=== PATIENT | male | born 1965 | race Two or more races ===

== ENCOUNTER → 2016-05-11 | Outpatient (CLI) | payer BC, MEDICAID ==
--- NOTE | 2016-06-02 00:33 | ECWPNPC ---
PATIENT NAME: SADE BUENROSTRO : 1965 GENDER: MALE MRN: VISIT DATE: 05/11/2016 DISCHARGE DATE: 05/11/16 1414 VISIT LOCKED DATE TIME: PHYSICIAN: CHARANJIT VOGEL RESOURCE: CHARANJIT VOGEL REASON FOR APPOINTMENT 1. CHRONIC PAIN HISTORY OF PRESENT ILLNESS FALL RISK SCREENING: SCREENING :NO FALLS IN THE PAST YEAR PAIN SCREENING: PATIENT HAS A COMPLAINT OF ACUTE OR CHRONIC PAIN YES TODAY'S VISIT: NOTES: REFERRRED BY DR GISELLA NASCIMENTO AT [facility]. IN 2011 ONSET OF HEADACHES LEFT SIDE, WAS THOUGHT TO BE TMJ - WAS SEEN BY DENTIST PAIN STARTED AT BASE OF SKULL RADIATES OVER HEAD TO TOP OF EYE, INTO LEFT MANDAEN , AND AT IT'S WORST WAS ALONG THE JAW EXCRUTIATING PAIN OCCURS IF LOOKING UP AND TO THE RIGHT.. WAS SEEN BY DR GARCIA, WENT FOR SURGERY AND HAD A DURAL LEAK WHICH CAUSED AN INFECTION. SPENT 26 DAYS IN ICU AT [facility] IN 2012. THIS PRODUCED NO IMPROVEMENT INWITH THE FACIAL PAIN OR THE OCCIPITAL PAIN. LEF TEYE CAN BE BLURRY WITH INCREASED PAIN . CAN HAVE A SURROUNDING WHITE AROUND LEFT EYE VISION. THIS OCCURRED PRIOR TO SURGERY. NO VISUAL FIELD STUDY DONE. HEARING - LEFT TINNITUS. HAS NOT HAD AUDILOGY TESTING. HAS SOME OCCASION PAIN RADIATING TO HANDS, SOME N/T INTO BOTH HANDS - NO EMG. NO SPECIFIC TRAUMA PRECEDED SX. ONSET WAS MORE GRADUAL. NO BOTOX. PAIN AGGRAVATED BY BENDING DOWN AND PICKING UP A WEIGHT. NO SPECIFIC AGGRAVATION OF PAIN WITH CHEWING.. CURRENT MEDICATIONS TAKING HYDROCODONE-ACETAMINOPHEN 10-325 MG TABLET 2 TABS ORALLY EVERY 6 HRS PRN TAKING OMEPRAZOLE 40 MG CAPSULE DELAYED RELEASE 1 CAPSULE ORALLY ONCE A DAY TAKING TRAMADOL HCL ER 100 MG TABLET EXTENDED RELEASE 24 HOUR 1 TABLET ORALLY ONCE A DAY NOT-TAKING HYSINGLA ER 80 MG TABLET ER 24 HOUR ABUSE-DETERRENT 1 TABLET ORALLY ONCE A DAY NOT-TAKING NUVIGIL 50 MG TABLET 1 TABLETS ORALLY BID MEDICATION LIST REVIEWED AND RECONCILED WITH THE PATIENT PAST MEDICAL HISTORY TRIGEMINAL NEURALGIA GERD BLEEDING ULCERS BACK AND NECK PAIN ALLERGIES OXYCONTIN: URINARY RETENTION: SIDE EFFECTS NSAIDS: GI BLEED/ULCERS: CONTRAINDICATION SURGICAL HISTORY ARTHROSCOPY LEFT SHOULER ROTATOR CUFF REPAIR 03/2015 RIGHT KNEE--UNI COMPARTMENTAL PARTIAL REPLACEMENT 03/2014 MICROVASCULAR DECOMPRESSION 01/2013 MICROVASCULAR DECOMPRESSION 12/2012 4 OTHER RIGHT KNEE SURGERIES 5 RIGHT HAND SURGERIES 4 RIGHT SHOULDER SURGERIES 2 OTHER LEFT SHOULDER SURGERIES CHOLECYSTECTOMY SURGERY ON RIGHT INDEX FINGER FAMILY HISTORY FATHER: 67 YRS, DIAGNOSED WITH CANCER MOTHER: ALIVE, DIAGNOSED WITH STROKE 2DAUGHTER(S) . DAD--LUNG CA. SOCIAL HISTORY GENERAL: TOBACCO USE ARE YOU A:NONSMOKER ALCOHOL SCREENING POINTS2 INTERPRETATIONNEGATIVE RECREATIONAL DRUG USE DRUG USE?NO CAFFEINE CAFFEINE USE?YES HOW OFTEN AND HOW MUCH? 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 DIET: REGULAR. EXERCISE: WALKS. MARITAL STATUS: .. OTHERS AT HOME: NONE. BUDDHISM: NO YAZIDISM BELIEFS THAT WOULD IMPACT HEALTH CARE. LANGUAGE: SLOVAK. EDUCATION: 3 COLLEGE DEGREES PLAN OF CARE FOR PAIN CLINIC DISCUSSED WITH PATIENT AND HE VERBALIZED UNDERSTANDING.. LEARNING BARRIERS / SPECIAL NEEDS VISION IMPAIRED?YES :CORRECTIVE LENSES FOR COMPUTER WORK LEARNING PREFERENCES?NO PAIN CLINIC PFS, CLERGY, PUBLIC HEALTH REFERRALS PFS REFERRAL NEEDED?NO CLERGY REFERRAL NEEDED?NO PUBLIC HEALTH REFERRAL NEEDED?NO ADVANCED DIRECTIVES HEALTH CARE PROXY?NO HAS LIVING WILL--DAUGHTER WENCESLAO SALOMON [phone] INSTRUCTED TO BRING IN LIVING WILL NEXT VISIT SO IT CAN BE SCANNED INTO OUR SYSTEM. HOSPITALIZATION/MAJOR DIAGNOSTIC PROCEDURE ABOVE SURGERIES WTIH THE 01/2013 WAS IN FOR 26 DAYS DUE TO COMPLICATIONS FROM SURGERY REVIEW OF SYSTEMS CONSTITUTIONAL: ANY CHANGE IN YOUR MEDICAL CONDITION? NO . CHILLS NO . FEVER NO . INFECTION: DO YOU HAVE NEW INFECTIONS? NO - SINUS CONGESTION . DO YOU HAVE HISTORY OF MRSA? NO . MUSCULOSKELETAL: ANY NEW PATTERNS OF PAIN OR NUMBNESS? NO . SYTEMIC LUPUS NO . GASTROENTEROLOGY: ANY NEW CHANGE IN BOWEL CONTROL? NO . BARRETTS ESOPHAGUS NO . CIRRHOSIS NO . HEPATITIS NO . LIVER FAILURE NO . ACID REFLUX YES ALONG WITH ULCER. LAST EGD 2015 . UNEXPLAINED WEIGHT LOSS NO . GENITOURINARY: ANY NEW CHANGE IN BLADDER CONTROL? NO . IS THERE A CHANCE YOU COULD BE ? NO . HEMATOLOGY/LYMPH: DO YOU TAKE ANY BLOOD THINNERS? (FOR EXAMPLE- COUMADIN, PLAVIX, AGGRENOX, PLATEL, PRADAXA, OR XARELTO) NO . WHEN WAS YOUR LAST DOSE? DATE: TIME: . LOW PLATELET COUNT NO . SICKLE CELL DISEASE NO . VON WILLIEBRANDS NO . FACTOR V LEIDEN NO . THALLASEMIA NO . ANEMIA NO . EASY BRUISING NO . NEUROLOGY: HAVE YOU FALLEN IN THE PAST 6 MONTHS? NO . ANY NEW EXTREMITY NUMBNESS OR WEAKNESS? NO . HEAD INJURY NO . DEMENTIA NO . CEREBRAL PALSY NO . MULTIPLE SCLEROSIS NO . DIZZINESS NO . HEADACHE CONSTANT HEADACHE DUE TO TRIGEMINAL NEURALGIA . STROKES NO . VERTIGO NO . CARDIOLOGY: DO YOU HAVE A PACEMAKER OR DEFIBRILLATOR? NO . ANGINA NO . HEART ATTACK NO . HEART SURGERY NO . CONGESTIVE HEART FAILURE/FLUID OVERLOAD NO . CHEST PAIN NO . HIGH BLOOD PRESSURE NO . IRREGULAR HEART BEAT NO . RESPIRATORY: HAVE YOU BEEN SICK IN THE PAST WEEK? NO . FEVER NO . FLU LIKE SYMPTOMS? NO . CPAP NO . BYPAP NO . ASTHMA YES . EMPHYSEMA NO . CHRONIC LUNG DISEASES NO . SHORTNESS OF BREATH ON EXERTION NO . COUGH NO . SNORING NO . INTEGUMENTARY: DO YOU HAVE ANY RASHES OR OPEN SORES? NO . ALLERGIC/IMMUNO: ARE YOU ALLERGIC TO SHELLFISH OR IV DYE? NO . ANY NEW ALLERGIES? NO . PSYCHIATRIC: DO YOU HAVE THOUGHTS OF HURTING YOURSELF OR SOMEONE ELSE? NO . ARE YOU ABUSED, NEGLECTED, OR IN AN UNSAFE ENVIRONMENT? NO . ENDOCRINOLOGY: ARE YOU DIABETIC? NO . THYROID DISORDER NO . OTHER: DO YOU NEED ANY PRESCRIPTIONS? YES, HYDROCODNE/ACETOMIN., TRAMADOL . IF YES, PLEASE LIST: ____ . ANY NEW PROBLEMS WITH YOUR MEDICATIONS? NO . WHEN DID YOU LAST EAT? ____ . WHEN DID YOU LAST DRINK? ____ . WHAT DID YOU LAST DRINK? ____ . NAME OF PERSON DRIVING YOU HOME? ____ . DO YOU HAVE ANY OTHER QUESTIONS OR CONCERNS NO . PSYCHOLOGY: SLEEP DISTURBANCES MEDS OUT CAUSING . REVIEWED BY: PROVIDER: CHARANJIT GEE . VITAL SIGNS WT 200 LBS, HT 69 IN, BMI 29.53 INDEX, BP 135/96 MM HG, HR 100 /MIN, RR 16 /MIN, TEMP 98.1 F, OXYGEN SAT % 97, REVIEWED BY: AD. EXAMINATION GENERAL EXAMINATION: PSYCHALERT , ORIENTED X 3 , APPROPRIATE MOOD AND AFFECT , GOOD EYE CONTACT, PLEASANT TO INTERACT WITH. HEENT:NORMOCEPHALIC, NO LYMPHADENOPATHY, NO THYROMEGLY. EXQUISITE TENDERNESS OVER LEFT TMJ. DIFFICULTY WITH FULLY OPENING JAW. LUNGS:CLEAR TO AUSCULTATION BILATERALLY, NO WHEEZES, RALES OR RHONCHI. HEART:NORMAL S1S2, NO MURMURS, CLICK OR RUBS. MUSCULOSKELETAL:MUSCLE STRENGTH TESTING 5/5 BILATERAL UPPER AND LOWER EXTREMITIES. SLIGHT DECREASE IN NECK ROM WITH FLEXION, EXTENSION AND ROTOATION. FEW TRIGGER POINTS AND TIGHT FIBROUS BANDS IDENTIFIED OVER CERVICAL PARASPINOUS MUSCLES AND ACROSS THE TRAPEZIUS. . PERIPHERAL PULSES:NORMAL (2+) BILATERALLY UPPER EXTREMITIES. NEUROLOGIC EXAM:INTERMITTANTLY DISCONGUGATE EYE MOVEMENT. DTR'S TRACE BILATERAL UPPER EXTREMITIES AND RIGHT LOWER EXTREMITIY , 2 + LEFT LOWER EXTREMITY. EOM'S INTACT WITHOUT NYSTAGMUS. , CN'S II-XII GROSSLY INTACT. HYPERSENSATIVITY TO LIGHT TOUCH OVER L>R OCCIPITAL NERVES. PATCHY PARESTHESIAS NOTED OVER LEFT TMJ AND TEMPORAL REGIONS. SPEACH NONDYSARTHRIC. RRAMS NON DYSMETRIC.. 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 MIGRAINE WITH AURA AND WITH STATUS MIGRAINOSUS, NOT INTRACTABLE - G43.101 TREATMENT OCCIPITAL NEURALGIA OF LEFT SIDE STOP TRAMADOL HCL ER TABLET EXTENDED RELEASE 24 HOUR, 100 MG, 1 TABLET, ORALLY, ONCE A DAY START HYDROCODONE-ACETAMINOPHEN TABLET, 10-325 MG, 1-2 TABS, ORALLY, EVERY 4-6 HRS PRN PAIN MDD=8, 30 DAYS, 240, REFILLS 0 STOP HYSINGLA ER TABLET ER 24 HOUR ABUSE-DETERRENT, 80 MG, 1 TABLET, ORALLY, ONCE A DAY START HYSINGLA ER TABLET ER 24 HOUR ABUSE-DETERRENT, 30 MG, 1 TABLET, ORALLY, ONCE A DAY MDD=1, 30 DAY(S), 30, REFILLS 0 CHEMODENERVATION (BOTOX) MISC-MIGRAINE HEADACHES NOTES: NARCOTIC AGREEMENT . , ISTOP REGISTRY REVIEWED AND DEMNOSTRATES COMPLLIANCE. BRINGS IN MEDICATIONS WHICH IS APPROPRIATE FOR WHAT WAS DISPENSED. RECENT URINE TOXICOLOGY REVIEWED. NO UNAUTHORIZED MEDICATIONS. NO ILLICIT SUBSTANCES AND PRESCRIBED MEDICATIONS WERE PRESENT. , RISKS AND BENEFITS OF NARCOTIC/OPIOD MEDICATIONS WERE REVIEWED WITH PATIENT - THIS INCLUDES BUT IS NOT LIMITED TO RISK OF DEPENDANCE/DEVELOPMENT OF ADDICTION, MOOD DISTURBANCE AND DEPRESSION, OSTEOPOROSIS, HORMONAL AND LABIDAL CHANGES, RESPIRATORY DEPRESSION AND . PATIENT IS ADVISED NOT TO DRIVE WHILE ON THESE MEDICATIONS. PREVENTIVE MEDICINE PAIN CLINIC TEACHING: PROCEDURE TEACHING BOOKLET ON BOTOX INJECTION GIVEN TO PATIENT. PROCEDURE EXPLAINED TO PATIENT AND HE VERBALIZED UNDERSTANDING.. PROCEDURE CODES FA211 ESTABILISHED PATIENT [facility] CHARGE DISPOSITION & COMMUNICATION FOLLOW UP 2 WEEKS (REASON: NEED HEAVEN - MRI REPORTS FROM [facility]) ELECTRONICALLY SIGNED BY PERNELL DANIELS ON 06/01/2016 AT 05:15 PM EST DISCLAIMER : THIS IS A VISIT SUMMARY EXTRACTED FROM THE [employer] CHART. IT IS NOT A COPY OF THE [employer] PROGRESS NOTE. JD
== END ==
LOC: M PAIN 11:20
PROVIDERS: ATTEND Nurse Practitioner Family
DX: M54.81 Occipital neuralgia (principal); G50.0 Trigeminal neuralgia; G43.101 Migraine with aura, not intractable, with status migrainosus; G89.29 Other chronic pain; M54.2 Cervicalgia; Z79.891 Long term (current) use of opiate analgesic; Z79.899 Other long term (current) drug therapy; Z88.6 Allergy status to analgesic agent; Z88.8 Allergy status to other drugs, medicaments and biological substances

== ENCOUNTER → 2016-06-10 | Outpatient (CLI) | payer MEDICAID ==
--- NOTE | 2016-06-10 23:40 | ECWPNPC ---
PATIENT NAME: SADE BUENROSTRO : 1965 GENDER: MALE VISIT DATE: 06/10/2016 DISCHARGE DATE: 06/10/16 1546 VISIT LOCKED DATE TIME: PHYSICIAN: CHARANJIT VOGEL RESOURCE: CHARANJIT VOGEL REASON FOR APPOINTMENT 1. MEDS HISTORY OF PRESENT ILLNESS HISTORY OF PRESENT ILLNESS: PAIN THE PATIENT DESCRIBES THE PAIN... FALL RISK SCREENING: SCREENING :NO FALLS IN THE PAST YEAR TODAY'S VISIT: NOTES: RATES PAIN TODAY 8-9/10. OVER WEEKEND FELL ON ICE AND DAMAGED LEFT KNEE. HAD MASSIVE MIGRAINE WHICH TOOK HIM BACK TO ER. IS SCHEDULED FOR INJECTIONS HERE. ONTINUES TO HAVE USUAL LEFT OCCIPITAL PAIN WITH RADIATION OVER THE VERTEX. HAS HAD SOME TINGLING OVER LEFT TMJAND TO CHEEK AND ADVENTISM. IS ANXIOUS TO MOVE FORWARD WITH BOTOX FOR PROPHYLAXIS OCHRONIC MIGRAINE.. CURRENT MEDICATIONS TAKING OMEPRAZOLE 40 MG CAPSULE DELAYED RELEASE 1 CAPSULE ORALLY ONCE A DAY TAKING HYDROCODONE-ACETAMINOPHEN 10-325 MG TABLET 1-2 TABS ORALLY EVERY 4-6 HRS PRN PAIN MDD=8 TAKING HYSINGLA ER 30 MG TABLET ER 24 HOUR ABUSE-DETERRENT 1 TABLET ORALLY ONCE A DAY MDD=1 NOT-TAKING NUVIGIL 50 MG TABLET 1 TABLETS ORALLY BID MEDICATION LIST REVIEWED AND RECONCILED WITH THE PATIENT PAST MEDICAL HISTORY TRIGEMINAL NEURALGIA GERD BLEEDING ULCERS BACK AND NECK PAIN ALLERGIES OXYCONTIN: URINARY RETENTION: SIDE EFFECTS NSAIDS: GI BLEED/ULCERS: CONTRAINDICATION SOCIAL HISTORY GENERAL: TOBACCO USE ARE YOU A:NONSMOKER LEARNING BARRIERS / SPECIAL NEEDS ORIENTED TO PLAN OF CARE: PATIENT, PAIN MANAGEMENT PATIENT, ORIENTED TO PLAN OF CARE: PATIENT, PAIN MANAGEMENT PATIENT. NEW PATIENT PAIN DIARY TODAY'S VISITNOTES FROM 0-10, WHAT LEVEL IS YOUR PAIN TODAY?0 PAIN CLINIC PFS, CLERGY, PUBLIC HEALTH REFERRALS PFS REFERRAL NEEDED?NO CLERGY REFERRAL NEEDED?NO PUBLIC HEALTH REFERRAL NEEDED?NO WAS THE PROVIDER NOTIFIED OF ANY PERTINENT INFO?NO PFS REFERRAL NEEDED?NO CLERGY REFERRAL NEEDED?NO PUBLIC HEALTH REFERRAL NEEDED?NO WAS THE PROVIDER NOTIFIED OF ANY PERTINENT INFO?NO REVIEW OF SYSTEMS CONSTITUTIONAL: ANY CHANGE IN YOUR MEDICAL CONDITION? YES . CHILLS NO . FEVER NO . INFECTION: DO YOU HAVE NEW INFECTIONS? NO . DO YOU HAVE HISTORY OF MRSA? NO . MUSCULOSKELETAL: ANY NEW PATTERNS OF PAIN OR NUMBNESS? YES . GASTROENTEROLOGY: ANY NEW CHANGE IN BOWEL CONTROL? NO . GENITOURINARY: ANY NEW CHANGE IN BLADDER CONTROL? NO . IS THERE A CHANCE YOU COULD BE ? NO . HEMATOLOGY/LYMPH: DO YOU TAKE ANY BLOOD THINNERS? (FOR EXAMPLE- COUMADIN, PLAVIX, AGGRENOX, PLATEL, PRADAXA, OR XARELTO) NO . WHEN WAS YOUR LAST DOSE? DATE: TIME: . NEUROLOGY: HAVE YOU FALLEN IN THE PAST 6 MONTHS? YES LAST WEEK FELL AT HOME TWISTED KNEE ..TORN MENISCUS LEFT . ALSO HAD MIGRAINE .THAT TOOK HIM TO THE ED PAPER WORK BROUGHT IN . ANY NEW EXTREMITY NUMBNESS OR WEAKNESS? NO . CARDIOLOGY: DO YOU HAVE A PACEMAKER OR DEFIBRILLATOR? NO . RESPIRATORY: HAVE YOU BEEN SICK IN THE PAST WEEK? NO . FEVER NO . FLU LIKE SYMPTOMS? NO . COUGH NO . INTEGUMENTARY: DO YOU HAVE ANY RASHES OR OPEN SORES? NO . ALLERGIC/IMMUNO: ARE YOU ALLERGIC TO SHELLFISH OR IV DYE? NO . ANY NEW ALLERGIES? NO . PSYCHIATRIC: DO YOU HAVE THOUGHTS OF HURTING YOURSELF OR SOMEONE ELSE? NO . ARE YOU ABUSED, NEGLECTED, OR IN AN UNSAFE ENVIRONMENT? NO . ENDOCRINOLOGY: ARE YOU DIABETIC? NO . OTHER: DO YOU NEED ANY PRESCRIPTIONS? NO . IF YES, PLEASE LIST: ____ . ANY NEW PROBLEMS WITH YOUR MEDICATIONS? NO . WHEN DID YOU LAST EAT? ____ . WHEN DID YOU LAST DRINK? ____ . WHAT DID YOU LAST DRINK? ____ . NAME OF PERSON DRIVING YOU HOME? ____ . DO YOU HAVE ANY OTHER QUESTIONS OR CONCERNS NO . REVIEWED BY: PROVIDER: CHARANJIT GEE . VITAL SIGNS WT 202.4 LBS, HT 69 IN, BMI 29.89 INDEX, BP 175/99 R ARM, REPEAT BP 165/101 L ARM, HR 82 /MIN, RR 18 /MIN, TEMP 96.0 F, OXYGEN SAT % 99, NA INITIALS TL 1439, REVIEWED BY: KG. EXAMINATION GENERAL EXAMINATION: PSYCHALERT , ORIENTED X 3 , APPROPRIATE MOOD AND AFFECT . HEENT:INTERMITTANT FLUSHING OF HEAD AND NECK. . LUNGS:CLEAR TO AUSCULTATION BILATERALLY, NO WHEEZES, RALES OR RHONCHI. HEART:HEART RATE REGULAR. MUSCULOSKELETAL:MUSCLE STRENGTH TESTING 5/5 BILATERAL UPPER AND LOWER EXTREMITIES. POINT TENDERNESS OVER LEFT OCCIPITAL NOTCH AND OCCIPUT. , TRIGGER POINTS AND TIGHT FIBROUS BANDS OVER CERVICA PARASPINOUS MUSCLES AND ACROSS TRAPEZIUS MUSCLES BILATERALLY. MARKED DECREASE IN ROM WITH NECK FLEXION, EXTENSION, ROTATION. POINT TENDERNESS OVER LEFT TMJ AND OVER V1 AND V2 DISTRIBUTIONS LEFT TRIGEMINAL NERVE. 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 CONTINUE CURRENT MEDS. UTOX TODAY.RESTART ARMODAFINIL. CLINICAL NOTES: ISTOP REGISTRY REVIEWED AND DEMNOSTRATES COMPLLIANCE. BRINGS IN MEDICATIONS WHICH IS APPROPRIATE FOR WHAT WAS DISPENSED. RECENT URINE TOXICOLOGY REVIEWED. NO UNAUTHORIZED MEDICATIONS. NO ILLICIT SUBSTANCES AND PRESCRIBED MEDICATIONS WERE PRESENT. PROCEDURE CODES FA211 ESTABILISHED PATIENT [facility] CHARGE DISPOSITION & COMMUNICATION FOLLOW UP 26-28 DAYS ELECTRONICALLY SIGNED BY PERNELL DANIELS ON 06/10/2016 AT 05:32 PM EST DISCLAIMER : THIS IS A VISIT SUMMARY EXTRACTED FROM THE [employer] CHART. IT IS NOT A COPY OF THE [employer] PROGRESS NOTE. JD
== END ==
LOC: M PAIN 14:40
PROVIDERS: ATTEND Nurse Practitioner Family
DX: Z09 Encounter for follow-up examination after completed treatment for conditions other than malignant neoplasm (principal); G89.29 Other chronic pain; M54.81 Occipital neuralgia; G50.0 Trigeminal neuralgia; G43.101 Migraine with aura, not intractable, with status migrainosus; K21.9 Gastro-esophageal reflux disease without esophagitis; Z88.5 Allergy status to narcotic agent; Z88.6 Allergy status to analgesic agent; Z79.891 Long term (current) use of opiate analgesic; Z79.899 Other long term (current) drug therapy

== ENCOUNTER → 2016-07-19 | Outpatient (CLI) | payer MEDICAID, OTHER ==
[~2016-07-19] MED LIST: BOTULINUM INJ 100 UNITS (J0585) IM ONE; diazePAM 5 MG TAB As Ordered ONE; oxyCODONE 5MG TAB As Ordered ONE
--- NOTE | 2016-07-28 00:07 | ECWPNPC ---
PATIENT NAME: SADE BUENROSTRO : 1965 GENDER: MALE VISIT DATE: 07/19/2016 DISCHARGE DATE: 07/19/16 1224 VISIT LOCKED DATE TIME: PHYSICIAN: ERICH JOEL RESOURCE: ERICH JOEL REASON FOR APPOINTMENT 1. BOTOX INJECTION HISTORY OF PRESENT ILLNESS HISTORY OF PRESENT ILLNESS: PAIN THE PATIENT DESCRIBES THE PAIN... FALL RISK SCREENING: SCREENING :NO FALLS IN THE PAST YEAR CURRENT MEDICATIONS TAKING OMEPRAZOLE 40 MG CAPSULE DELAYED RELEASE 1 CAPSULE ORALLY ONCE A DAY, NOTES: 07/19/16 05 TAKING HYSINGLA ER 30 MG TABLET ER 24 HOUR ABUSE-DETERRENT 1 TABLET ORALLY ONCE A DAY MDD=1, NOTES: 07/19/16 05 TAKING ARMODAFINIL 150 MG TABLET 1 TABLET IN THE MORNING ORALLY ONCE A DAY MDD=1, NOTES: 07/17/16 2300 TAKING HYDROCODONE-ACETAMINOPHEN 10-325 MG TABLET 1-2 TABS ORALLY EVERY 4-6 HRS PRN PAIN MDD=8, NOTES: 07/19/16 0530 NOT-TAKING NUVIGIL 50 MG TABLET 1 TABLETS ORALLY BID MEDICATION LIST REVIEWED AND RECONCILED WITH THE PATIENT PAST MEDICAL HISTORY TRIGEMINAL NEURALGIA GERD BLEEDING ULCERS BACK AND NECK PAIN ALLERGIES OXYCONTIN: URINARY RETENTION: SIDE EFFECTS NSAIDS: GI BLEED/ULCERS: CONTRAINDICATION SOCIAL HISTORY GENERAL: PAIN CLINIC PFS, CLERGY, PUBLIC HEALTH REFERRALS CLERGY REFERRAL NEEDED?NO WAS THE PROVIDER NOTIFIED OF ANY PERTINENT INFO?NO PFS REFERRAL NEEDED?NO PUBLIC HEALTH REFERRAL NEEDED?NO PATIENT: ____. REVIEW OF SYSTEMS CONSTITUTIONAL: ANY CHANGE IN YOUR MEDICAL CONDITION? YES, RIGHT ARM AND SHOULDER . CHILLS NO . FEVER NO . INFECTION: DO YOU HAVE NEW INFECTIONS? NO . DO YOU HAVE HISTORY OF MRSA? NO . MUSCULOSKELETAL: ANY NEW PATTERNS OF PAIN OR NUMBNESS? YES, INCREASED EYE PAIN, ALSO REPORTS SIGNIFICANT INCREASE OF PAIN RIGHT ARM. AT NIGHT, HE STATES HIS RIGHT ARM FROM SHOULDER DOWN &QUOT;GOES ASLEEP&QUOT; WITH INCREASED PAIN WITHIN MINUTES OF LYING DOWN. . GASTROENTEROLOGY: ANY NEW CHANGE IN BOWEL CONTROL? NO . GENITOURINARY: ANY NEW CHANGE IN BLADDER CONTROL? NO . IS THERE A CHANCE YOU COULD BE ? NO . HEMATOLOGY/LYMPH: DO YOU TAKE ANY BLOOD THINNERS? (FOR EXAMPLE- COUMADIN, PLAVIX, AGGRENOX, PLATEL, PRADAXA, OR XARELTO) NO . WHEN WAS YOUR LAST DOSE? DATE: TIME: . NEUROLOGY: HAVE YOU FALLEN IN THE PAST 6 MONTHS? NO . ANY NEW EXTREMITY NUMBNESS OR WEAKNESS? NO . CARDIOLOGY: DO YOU HAVE A PACEMAKER OR DEFIBRILLATOR? NO . RESPIRATORY: HAVE YOU BEEN SICK IN THE PAST WEEK? NO . FEVER NO . FLU LIKE SYMPTOMS? NO . COUGH NO . INTEGUMENTARY: DO YOU HAVE ANY RASHES OR OPEN SORES? NO . ALLERGIC/IMMUNO: ARE YOU ALLERGIC TO SHELLFISH OR IV DYE? NO . ANY NEW ALLERGIES? NO . PSYCHIATRIC: DO YOU HAVE THOUGHTS OF HURTING YOURSELF OR SOMEONE ELSE? NO . ARE YOU ABUSED, NEGLECTED, OR IN AN UNSAFE ENVIRONMENT? NO . ENDOCRINOLOGY: ARE YOU DIABETIC? NO . OTHER: DO YOU NEED ANY PRESCRIPTIONS? NO . IF YES, PLEASE LIST: ____ . ANY NEW PROBLEMS WITH YOUR MEDICATIONS? YES, MEDICATION SEEMS NOT WORKING IT DID . WHEN DID YOU LAST EAT? 9PM . WHEN DID YOU LAST DRINK? 0530 ON 07/19/16 . WHAT DID YOU LAST DRINK? COFFEE WITH CREAMER . NAME OF PERSON DRIVING YOU HOME? ____ . DO YOU HAVE ANY OTHER QUESTIONS OR CONCERNS NO . REVIEWED BY: PROVIDER: . VITAL SIGNS WT 191 LBS, HT 69 IN, BMI 28.20 INDEX, BP 135/88 MM HG, HR 72 /MIN, RR 18 /MIN, TEMP 98.1 F, OXYGEN SAT % 96%, SAFE IN ENV? (Y/N) LAS, NA INITIALS SJ 09:54, REVIEWED BY: NL. ASSESSMENTS MIGRAINE WITH AURA, NOT INTRACTABLE, WITH STATUS MIGRAINOSUS - G43.101 (PRIMARY) PROCEDURES PRE PROCEDURE DIAGNOSIS CHRONIC MIGRAINE HEADACHES.. POST PROCEDURE DIAGNOSIS CHRONIC MIGRAINE HEADACHES.. PROCEDURE BOTOX INJECTION AT THE HEAD, NECK AND SHOULDERS. SURGEON DR. ERICH JOEL. WOOD EXPERIMENTAL MECHANIC NONE. ANESTHESIA NONE. PRE PROCEDURE NOTE THE PATIENT WITH HISTORY OF CHRONIC MIGRAINE HEADACHES. I EVALUATE THE PATIENT AND REVIEWED THE CHART. I WENT OVER THE RISKS, ALTERNATIVES, AND BENEFITS ASSOCIATED WITH THIS PROCEDURE. THE PATIENT WOULD LIKE TO PROCEED AND GIVE CONSENT TO PERFORMED THE PROCEDURE. THE PATIENT DENIES UNEXPLAINABLE WEIGHT LOSS, FEVER, CHILLS, OR NEW CHANGES IN URINARY OR BOWEL CONTROL. THE PATIENT EXPRESSED SUFFERING OF HEADACHES 30 HEADACHES A MONTH. THESE HEADACHES LAST MORE THAN 4 HOURS PER DAY. THE PATIENT HAS USED THE MEDICATIONS LISTED IN THE CHART TO TREAT THE HEADACHES FOR MANY MONTHS AND THE HEADACHES PERSIST DESCRIBED ABOVE. DESCRIPTION OF PROCEDURE THE PATIENTS WAS BROUGHT TO THE PROCEDURE ROOM AND PLACED IN THE SUPINE POSITION. I CHECKED LATERALITY AND THE AREAS WHERE THE PROCEDURE WAS GOING TO BE PERFORMED WITH THE PATIENT AND THE SUPPORTING STAFF AT THE MOMENT OF THE TIME OUT IN THE PROCEDURE ROOM. FOR THE PROCEDURE I USED A SOLUTION OF 5 UNITS OF BOTOX PER EACH 0.1 ML OF THE SOLUTION. I USED A 30-GAUGE NEEDLE TO INJECT THE SOLUTION AT THE SELECTED LOCATIONS. I INJECTED FIRST THE RIGHT AND LEFT CONTINUITY DIRECTOR MUSCLES. THE LANDMARK FOR BOTH INJECTIONS WAS APPROXIMATELY 1 CM ABOVE THE SUPERIOR MEDIAL EDGE OF THE EYEBROW. AFTER THESE TWO INJECTIONS, I INJECTED THE PROCERUS MUSCLE AT THE MIDLINE POINT BETWEEN THESE FIRST TWO INJECTIONS. THEN I PROCEEDED TO INJECT THE RIGHT AND LEFT FRONTALIS MUSCLE. TWO INJECTIONS WERE DONE IN EACH SIDE. THE FIRST INJECTION WAS DONE APPROXIMATELY 2 CM ABOVE THE FIRST INJECTION OF THE CONTINUITY DIRECTOR. THE SECOND INJECTION WAS DONE APPROXIMATELY 1.5 CM LATERAL TO THIS FIST INJECTION OF THE FRONTALIS OF EACH SIDE. AFTER THE INJECTIONS OVER THE FOREHEAD WERE DONE, THE PATIENT'S HEAD WAS TURNED TO THE LEFT SIDE AND WE STARTED TO WORK WITH THE RIGHT TEMPORALIS MUSCLE. FIRST INJECTION WAS DONE IN A VERTICAL LINE OF THE TRAGUS APPROXIMATELY 3 CM ABOVE THE TRAGUS. THE SECOND INJECTION WAS DONE APPROXIMATELY 2 CM ABOVE THE FIRST INJECTION. THE THIRD INJECTION WAS DONE APPROXIMATELY 1 CM FRONT SHAH FROM THIS VERTICAL LINE CREATED AT THE LEVEL OF THE TRAGUS, SKILLED NURSING BETWEEN THESE TWO INJECTIONS. THE FOURTH INJECTION WAS DONE APPROXIMATELY 1.5 CM BACK FROM THE SECOND INJECTION TO THE TEMPORALIS IN LINE TO THE MIDPORTION OF THE EAR. THEN, WE PROCEEDED TO INJECT THE LEFT TEMPORALIS MUSCLE. WE CLEANED THE AREA WITH ALCOHOL AND PROCEEDED TO PERFORM THE SAME FOR INJECTIONS DESCRIBED ABOVE BUT IN THE LEFT TEMPORALIS MUSCLE USING THE SAME LANDMARKS. AFTER THESE INJECTIONS WERE DONE, THE PATIENT WAS SEATED. FIRST, WE STARTED TO INJECT THE LEFT AND RIGHT OCCIPITALIS MUSCLE. I INJECTED AT THE FOLLOWING PLACES IN THE RIGHT AND LEFT MUSCLE. THE FIRST INJECTION WAS DONE AT THE MIDPOINT POSITION BETWEEN THE MASTOID PROCESS AND THE INION OF THE OCCIPITAL PROTUBERANCE. THE SECOND INJECTION WAS DONE APPROXIMATELY 1.5 CM SUPERIOR AND LATERAL OF THIS POINT. THE THIRD INJECTION WAS DONE APPROXIMATELY 1.5 CM SUPERIOR AND MEDIAL TO THIS FIRST INJECTION. THEN, I PROCEEDED TO INJECT THE RIGHT AND LEFT PARASPINAL MUSCLES. LANDMARK OF THE INJECTION WERE APPROXIMATELY: FIRST INJECTION 3 CM BELOW THE INION AND 1 CM LATERAL TO THE MIDLINE AND SECOND INJECTION AT EACH SIDE WAS DONE APPROXIMATELY 1.5 CM SUPERIOR AND LATERAL OF THE FIRST INJECTION. THE LAST GROUP OF INJECTIONS WAS DONE OVER THE RIGHT AND LEFT TRAPEZIUS MUSCLE OVER THE SHOULDERS AREA. THE FIRST INJECTION WAS DONE AT THE MIDPOINT BETWEEN THE INFLECTION POINT BETWEEN THE NECK AND SHOULDER AND THE ACROMION. THE SECOND AND THIRD INJECTIONS WERE DONE APPROXIMATELY 2.5 CM LATERAL AND MEDIAL FROM THIS FIRST INJECTION. SAME TARGETS WERE USED IN THE RIGHT AND LEFT SIDE. IN TOTAL, I INJECTED 155 UNITS OF BOTOX. PROCEDURE WAS DONE WITHOUT EVIDENCE OF PARESTHESIA, PNEUMOTHORAX, OR ANY COMPLICATIONS. THE PATIENT TOLERATED THE PROCEDURE VERY WELL. THE PATIENT WAS SENT TO THE RECOVERY ROOM FOR OBSERVATIONS. INJECTIONS WERE DONE AFTER CLEANING WITH ALCOHOL, USING ASEPTIC TECHNIQUES. POST PROCEDURE NOTE THE PROCEDURE DONE WAS DISCUSSED WITH THE PATIENT. THE PATIENT WILL BE SEEN IN A FOLLOW UP IN THE NEXT FEW WEEKS. INSTRUCTIONS WERE GIVEN, QUESTIONS WERE ANSWERED, AND THE PATIENT EXPRESSED UNDERSTANDING AND AGREES WITH THE PLAN. I, GRAZYNA KUO, DOCUMENTED THE ABOVE INFORMATION ACTING A SCRIBE FOR DR. JOEL. I HAVE REVIEWED THE ABOVE DOCUMENT, WRITTEN BY GRAZYNA KUO SCRIBFlorentino AND I VERIFY THAT IT IS ACCURATE. PROCEDURE CODES 66764 [facility] [facility] DISPOSITION & COMMUNICATION FOLLOW UP 3 WEEKS ELECTRONICALLY SIGNED BY ERICH JOEL MD ON 07/27/2016 AT 08:41 PM EDT DISCLAIMER : THIS IS A VISIT SUMMARY EXTRACTED FROM THE Interview CHART. IT IS NOT A COPY OF THE Interview PROGRESS NOTE. JD
== END | disposition home or self-care (01) ==
LOC: M PAIN 10:20
PROVIDERS: ATTEND Anesthesiology
DX: G89.29 Other chronic pain (principal); G43.101 Migraine with aura, not intractable, with status migrainosus; K21.9 Gastro-esophageal reflux disease without esophagitis; G50.0 Trigeminal neuralgia; M54.9 Dorsalgia, unspecified; Z79.899 Other long term (current) drug therapy; Z88.5 Allergy status to narcotic agent; Z88.8 Allergy status to other drugs, medicaments and biological substances
CPT/HCPCS: 64615; J0585

== ENCOUNTER → 2016-08-27 | Outpatient (CLI) | payer OTHER, MEDICAID ==
--- NOTE | 2016-09-14 01:01 | ECWPNPC ---
PATIENT NAME: SADE BUENROSTRO : 1965 GENDER: MALE VISIT DATE: 08/27/2016 DISCHARGE DATE: 08/27/16 1239 VISIT LOCKED DATE TIME: PHYSICIAN: CHARANJIT VOGEL RESOURCE: CHARANJIT VOGEL HISTORY OF PRESENT ILLNESS HISTORY OF PRESENT ILLNESS: PAIN THE PATIENT DESCRIBES THE PAIN... FALL RISK SCREENING: SCREENING :NO FALLS IN THE PAST YEAR TODAY'S VISIT: NOTES: RATES PAIN TODAY 8-9/10. ONSET OF NEW LEFT ANKLE PAIN AND SWELLING 08/23/16. STATES HAD NO TRAUMA, NO KNOW INJURIES, NO KNOW TICK BITES. NO PRIOR HX OF GOUT. HEADACHES OF SAME INTENSITY, NO CHANGE/IMPROVEENT SINCE INJECTION. HEADACHES ARE CONSTANT. IS TO HAVE RIGHT MOLAR EXTRA EXTRACTED. CAN NOT BITE. NO EFFECT WITH LEFT SIDED PAIN WITH CHEWING. SLEEP - ABOUT 6HRS HOURS. AWAKNENS WITHOUT PART REASON. DAYTIME WAKEFULNESS OS OK - ABLE TO FUNCTION. . CURRENT MEDICATIONS TAKING OMEPRAZOLE 40 MG CAPSULE DELAYED RELEASE 1 CAPSULE ORALLY ONCE A DAY, NOTES: 07/19/16 0530 TAKING OXYCODONE HCL 10 MG TABLET 1 TABLET NEEDED ORALLY EVERY 4 HRS PRN PAIN MDD=6 CHRONIC PAIN TAKING HYDROCODONE-ACETAMINOPHEN 10-325 MG TABLET 1-2 TABS ORALLY EVERY 4-6 HRS PRN PAIN MDD=8 TAKING ARMODAFINIL 150 MG TABLET 1 TABLET IN THE MORNING ORALLY ONCE A DAY MDD=1 NOT-TAKING NUVIGIL 50 MG TABLET 1 TABLETS ORALLY BID MEDICATION LIST REVIEWED AND RECONCILED WITH THE PATIENT PAST MEDICAL HISTORY TRIGEMINAL NEURALGIA GERD BLEEDING ULCERS BACK AND NECK PAIN ALLERGIES OXYCONTIN: URINARY RETENTION: SIDE EFFECTS NSAIDS: GI BLEED/ULCERS: CONTRAINDICATION SURGICAL HISTORY ARTHROSCOPY LEFT SHOULER ROTATOR CUFF REPAIR 03/2015 RIGHT KNEE--UNI COMPARTMENTAL PARTIAL REPLACEMENT 03/2014 MICROVASCULAR DECOMPRESSION 01/2013 MICROVASCULAR DECOMPRESSION 12/2012 4 OTHER RIGHT KNEE SURGERIES 5 RIGHT HAND SURGERIES 4 RIGHT SHOULDER SURGERIES 2 OTHER LEFT SHOULDER SURGERIES CHOLECYSTECTOMY SURGERY ON RIGHT INDEX FINGER HOSPITALIZATION/MAJOR DIAGNOSTIC PROCEDURE ABOVE SURGERIES WTIH THE 01/2013 WAS IN FOR 26 DAYS DUE TO COMPLICATIONS FROM SURGERY REVIEW OF SYSTEMS CONSTITUTIONAL: ANY CHANGE IN YOUR MEDICAL CONDITION? NO . CHILLS NO . FEVER NO . INFECTION: DO YOU HAVE NEW INFECTIONS? YES, COUGH, ALLERGIES . DO YOU HAVE HISTORY OF MRSA? NO . MUSCULOSKELETAL: ANY NEW PATTERNS OF PAIN OR NUMBNESS? YES. PT STATES LEFT HEEL PAIN RADIATING UP TO LEFT KNEE. STARTED 5 DAYS AGO , SPONTANIOUS ONSET UPON RISING IN AM. PT STATES PAIN STARTED THE DAY AFTER HE RETURNED FROM TRAVELING TO [place]. PT STATES HE FLEW BOTH WAYS. PT DENIES HX OF THIS PAIN TO LEFT FOOT/LEG. . GASTROENTEROLOGY: ANY NEW CHANGE IN BOWEL CONTROL? NO . GENITOURINARY: ANY NEW CHANGE IN BLADDER CONTROL? NO . IS THERE A CHANCE YOU COULD BE ? NO . HEMATOLOGY/LYMPH: DO YOU TAKE ANY BLOOD THINNERS? (FOR EXAMPLE- COUMADIN, PLAVIX, AGGRENOX, PLATEL, PRADAXA, OR XARELTO) NO . WHEN WAS YOUR LAST DOSE? DATE: TIME: . NEUROLOGY: HAVE YOU FALLEN IN THE PAST 6 MONTHS? NO . ANY NEW EXTREMITY NUMBNESS OR WEAKNESS? NO . CARDIOLOGY: DO YOU HAVE A PACEMAKER OR DEFIBRILLATOR? NO . RESPIRATORY: HAVE YOU BEEN SICK IN THE PAST WEEK? NO . FEVER NO . FLU LIKE SYMPTOMS? NO . COUGH NO . INTEGUMENTARY: DO YOU HAVE ANY RASHES OR OPEN SORES? NO . ALLERGIC/IMMUNO: ARE YOU ALLERGIC TO SHELLFISH OR IV DYE? NO . ANY NEW ALLERGIES? NO . PSYCHIATRIC: DO YOU HAVE THOUGHTS OF HURTING YOURSELF OR SOMEONE ELSE? NO . ARE YOU ABUSED, NEGLECTED, OR IN AN UNSAFE ENVIRONMENT? NO . ENDOCRINOLOGY: ARE YOU DIABETIC? NO . OTHER: DO YOU NEED ANY PRESCRIPTIONS? YES, OXYCODONE-ARMODAFANIL . IF YES, PLEASE LIST: ____ . ANY NEW PROBLEMS WITH YOUR MEDICATIONS? NO . WHEN DID YOU LAST EAT? ____ . WHEN DID YOU LAST DRINK? ____ . WHAT DID YOU LAST DRINK? ____ . NAME OF PERSON DRIVING YOU HOME? ____ . DO YOU HAVE ANY OTHER QUESTIONS OR CONCERNS NO . REVIEWED BY: PROVIDER: CHARANJIT GEE . VITAL SIGNS WT 194.0 LBS, HT 69 IN, BMI 28.65 INDEX, BP 156/100 MM HG, HR 105 /MIN, RR 16 /MIN, TEMP 96.4 F, OXYGEN SAT % 96%, SAFE IN ENV? (Y/N) Y, NA INITIALS TL 1046, REVIEWED BY: EM. EXAMINATION GENERAL EXAMINATION: PSYCHALERT , ORIENTED X 3 , APPROPRIATE MOOD AND AFFECT . HEENT:INTERMITTANT FLUSHING OF HEAD AND NECK. . LUNGS:CLEAR TO AUSCULTATION BILATERALLY, NO WHEEZES, RALES OR RHONCHI. HEART:HEART RATE REGULAR. MUSCULOSKELETAL:MUSCLE STRENGTH TESTING 5/5 BILATERAL UPPER AND LOWER EXTREMITIES. POINT TENDERNESS OVER LEFT OCCIPITAL NOTCH AND OCCIPUT. , TRIGGER POINTS AND TIGHT FIBROUS BANDS OVER CERVICA PARASPINOUS MUSCLES AND ACROSS TRAPEZIUS MUSCLES BILATERALLY. MARKED DECREASE IN ROM WITH NECK FLEXION, EXTENSION, ROTATION. POINT TENDERNESS OVER LEFT TMJ AND OVER V1 AND V2 DISTRIBUTIONS LEFT TRIGEMINAL NERVE. 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 BRINGS IN MEDICATIONS WHICH IS APPROPRIATE FOR WHAT WAS DISPENSED. RECENT URINE TOXICOLOGY REVIEWED. NO UNAUTHORIZED MEDICATIONS. NO ILLICIT SUBSTANCES AND PRESCRIBED MEDICATIONS WERE PRESENT. CLINICAL NOTES: REVIEWED WITH PT THAT WE WILL NOT BE ABLE TO OBTAIN MEDS THAT ARE NOT ON HIS FORMULARY. PROCEDURE CODES FA211 ESTABILISHED PATIENT [facility] CHARGE DISPOSITION & COMMUNICATION FOLLOW UP DUE FOR BOTOX 10/18/16 (REASON: CHECK AUTH FOR BOTOX) ELECTRONICALLY SIGNED BY PERNELL DANIELS ON 09/13/2016 AT 10:52 AM EDT DISCLAIMER : THIS IS A VISIT SUMMARY EXTRACTED FROM THE [employer] CHART. IT IS NOT A COPY OF THE [employer] PROGRESS NOTE. ESTHERD
== END | disposition home or self-care (01) ==
LOC: M PAIN 11:00
PROVIDERS: ATTEND Nurse Practitioner Family
DX: G89.29 Other chronic pain (principal); M54.81 Occipital neuralgia; G43.001 Migraine without aura, not intractable, with status migrainosus; G50.0 Trigeminal neuralgia; K21.9 Gastro-esophageal reflux disease without esophagitis; K27.4 Chronic or unspecified peptic ulcer, site unspecified, with hemorrhage; Z79.899 Other long term (current) drug therapy; Z88.5 Allergy status to narcotic agent; Z88.8 Allergy status to other drugs, medicaments and biological substances

== ENCOUNTER → 2016-11-29 | Outpatient (CLI) | payer OTHER, MEDICAID ==
--- NOTE | 2016-12-03 23:49 | ECWPNPC ---
PATIENT NAME: SADE BUENROSTRO : 1965 GENDER: MALE VISIT DATE: 11/29/2016 DISCHARGE DATE: 11/29/16 1125 VISIT LOCKED DATE TIME: PHYSICIAN: CHARANJIT VOGEL RESOURCE: CHARANJIT VOGEL REASON FOR APPOINTMENT 1. MEDS HISTORY OF PRESENT ILLNESS HISTORY OF PRESENT ILLNESS: PAIN THE PATIENT DESCRIBES THE PAIN... FALL RISK SCREENING: SCREENING :NO FALLS IN THE PAST YEAR TODAY'S VISIT: NOTES: RATES PAIN LEVEL TODAY 8-9/10 HAS NEW COMPLAINT OF FALL RESULTING IN RIGHT ROTATOR CUFF TEAR WITHSURGERY BEING PLANNED FOR TOMORROW IN [place]. IS SCHEDULED FOR BOTOX TODAY. FACIAL PAIN IS UNCHANGED. . CURRENT MEDICATIONS TAKING OMEPRAZOLE 40 MG CAPSULE DELAYED RELEASE 1 CAPSULE ORALLY ONCE A DAY TAKING HYDROCODONE-ACETAMINOPHEN 10-325 MG TABLET 1-2 TABS ORALLY EVERY 4-6 HRS PRN PAIN MDD=8 TAKING OXYCODONE HCL 10 MG TABLET 1 TABLET NEEDED ORALLY EVERY 4 HRS PRN PAIN MDD=6 CHRONIC PAIN NOT-TAKING ARMODAFINIL 150 MG TABLET 1 TABLET IN THE MORNING ORALLY ONCE A DAY MDD=1 NOT-TAKING NUVIGIL 50 MG TABLET 1 TABLETS ORALLY BID MEDICATION LIST REVIEWED AND RECONCILED WITH THE PATIENT PAST MEDICAL HISTORY TRIGEMINAL NEURALGIA GERD BLEEDING ULCERS BACK AND NECK PAIN ALLERGIES OXYCONTIN: URINARY RETENTION: SIDE EFFECTS NSAIDS: GI BLEED/ULCERS: CONTRAINDICATION REVIEW OF SYSTEMS REVIEWED BY: PROVIDER: CHARANJIT VOGEL TEMPORARY OFFICE ASSISTANT . CONSTITUTIONAL: ANY CHANGE IN YOUR MEDICAL CONDITION? NO . CHILLS NO . FEVER NO . INFECTION: DO YOU HAVE NEW INFECTIONS? NO . DO YOU HAVE HISTORY OF MRSA? NO . MUSCULOSKELETAL: ANY NEW PATTERNS OF PAIN OR NUMBNESS? NO . GASTROENTEROLOGY: ANY NEW CHANGE IN BOWEL CONTROL? NO . GENITOURINARY: ANY NEW CHANGE IN BLADDER CONTROL? NO . IS THERE A CHANCE YOU COULD BE ? NO . HEMATOLOGY/LYMPH: DO YOU TAKE ANY BLOOD THINNERS? (FOR EXAMPLE- COUMADIN, PLAVIX, AGGRENOX, PLATEL, PRADAXA, OR XARELTO) NO . WHEN WAS YOUR LAST DOSE? DATE: TIME: . NEUROLOGY: HAVE YOU FALLEN IN THE PAST 6 MONTHS? NO . ANY NEW EXTREMITY NUMBNESS OR WEAKNESS? NO . CARDIOLOGY: DO YOU HAVE A PACEMAKER OR DEFIBRILLATOR? NO . RESPIRATORY: HAVE YOU BEEN SICK IN THE PAST WEEK? NO . FEVER NO . FLU LIKE SYMPTOMS? NO . COUGH NO . INTEGUMENTARY: DO YOU HAVE ANY RASHES OR OPEN SORES? NO . ALLERGIC/IMMUNO: ARE YOU ALLERGIC TO SHELLFISH OR IV DYE? NO . ANY NEW ALLERGIES? NO . PSYCHIATRIC: DO YOU HAVE THOUGHTS OF HURTING YOURSELF OR SOMEONE ELSE? NO . ARE YOU ABUSED, NEGLECTED, OR IN AN UNSAFE ENVIRONMENT? NO . ENDOCRINOLOGY: ARE YOU DIABETIC? NO . OTHER: DO YOU NEED ANY PRESCRIPTIONS? NO . IF YES, PLEASE LIST: ____ . ANY NEW PROBLEMS WITH YOUR MEDICATIONS? NO . WHEN DID YOU LAST EAT? ____ . WHEN DID YOU LAST DRINK? ____ . WHAT DID YOU LAST DRINK? ____ . NAME OF PERSON DRIVING YOU HOME? ____ . DO YOU HAVE ANY OTHER QUESTIONS OR CONCERNS NO . VITAL SIGNS WT 181 LBS, HT 69 IN, BMI 26.73 INDEX, BP 157/98 MM HG, HR 100 /MIN, RR 16 /MIN, TEMP 97.6 F, OXYGEN SAT % 99%, NA INITIALS SC 10:52. EXAMINATION GENERAL EXAMINATION: PSYCHALERT , ORIENTED X 3 , APPROPRIATE MOOD AND AFFECT . HEENT:INTERMITTANT FLUSHING OF HEAD AND NECK. . LUNGS:CLEAR TO AUSCULTATION BILATERALLY, NO WHEEZES, RALES OR RHONCHI. HEART:HEART RATE REGULAR. MUSCULOSKELETAL:MUSCLE STRENGTH TESTING 5/5 BILATERAL UPPER AND LOWER EXTREMITIES. POINT TENDERNESS OVER LEFT OCCIPITAL NOTCH AND OCCIPUT. , TRIGGER POINTS AND TIGHT FIBROUS BANDS OVER CERVICA PARASPINOUS MUSCLES AND ACROSS TRAPEZIUS MUSCLES BILATERALLY. MARKED DECREASE IN ROM WITH NECK FLEXION, EXTENSION, ROTATION. POINT TENDERNESS OVER LEFT TMJ AND OVER V1 AND V2 DISTRIBUTIONS LEFT TRIGEMINAL NERVE. 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 CLINICAL NOTES: ISTOP REGISTRY REVIEWED AND DEMNOSTRATES COMPLLIANCE. BRINGS IN MEDICATIONS WHICH IS APPROPRIATE FOR WHAT WAS DISPENSED. RECENT URINE TOXICOLOGY REVIEWED. NO UNAUTHORIZED MEDICATIONS. NO ILLICIT SUBSTANCES AND PRESCRIBED MEDICATIONS WERE PRESENT. ADDENDUM - UTOX COMPLETED 11/29/16 AND REVIEWED 12/03/16 - NO PRESENCE OF MINUTE QUANTITY THC. HYDROCODONE PRENT EXPECT. OXYCODONE NOT PRESENT EXPECTED. NO DILAUDID SEEN IN URINE - HAD BEEN ADMINISTED SEVERAL DAYS AGO IN ER. WILL REVIEW WITH PATIENT AT NEXT VISIT. PREVENTIVE MEDICINE PT SCHEDULED FOR BOTOX TODAY AND IS HAVING ROTATOR CUFF SURGERY TOMORROW / DISCUSSED WITH DR JOEL AND BOTOX CANCELLED TODAY. PROCEDURE CODES FA211 ESTABILISHED PATIENT [facility] CHARGE DISPOSITION & COMMUNICATION FOLLOW UP 1 MONTH (REASON: POST BOTOX) ELECTRONICALLY SIGNED BY PERNELL DANIELS ON 12/03/2016 AT 06:59 PM EDT DISCLAIMER : THIS IS A VISIT SUMMARY EXTRACTED FROM THE [email or web address] CHART. IT IS NOT A COPY OF THE [email or web address] PROGRESS NOTE. JD
== END | disposition home or self-care (01) ==
LOC: M PAIN 10:45
PROVIDERS: ATTEND Nurse Practitioner Family
DX: G89.29 Other chronic pain (principal); M54.81 Occipital neuralgia; G43.009 Migraine without aura, not intractable, without status migrainosus; K21.9 Gastro-esophageal reflux disease without esophagitis; K27.4 Chronic or unspecified peptic ulcer, site unspecified, with hemorrhage; Z79.899 Other long term (current) drug therapy; Z88.5 Allergy status to narcotic agent; Z88.8 Allergy status to other drugs, medicaments and biological substances

== ENCOUNTER → 2016-12-14 | Outpatient (CLI) | payer OTHER, MEDICAID ==
--- NOTE | 2016-12-14 23:10 | ECWPNPC ---
PATIENT NAME: SADE BUENROSTRO : 1965 GENDER: MALE VISIT DATE: 12/14/2016 DISCHARGE DATE: 12/14/16 1443 VISIT LOCKED DATE TIME: PHYSICIAN: CHARANJIT VOGEL RESOURCE: CHARANJIT VOGEL REASON FOR APPOINTMENT 1. RAI HISTORY OF PRESENT ILLNESS HISTORY OF PRESENT ILLNESS: PAIN THE PATIENT DESCRIBES THE PAIN... FALL RISK SCREENING: SCREENING :NO FALLS IN THE PAST YEAR TODAY'S VISIT: NOTES: WAS HERE FOR BOTOX INJECTION BUT THIS WAS PUT ON HOLD HE WAS DUE TO HAVE SHOULDER SURGERY THE NEXT DAY. COME IN TODAY HE IS HAVING NEW MARKED INCREASE IN LEFT NECK TO FACE AND FACE/JAW PAIN WITH ONSET ON 12/10/16. INTENSE PAIN AT BASE OF SKULL. HAS VISUAL AURA AND PHOTOPHOBIA WHICH IS NEW. LEFT EYE VISION IS CLOUDY. . CURRENT MEDICATIONS TAKING OMEPRAZOLE 40 MG CAPSULE DELAYED RELEASE 1 CAPSULE ORALLY ONCE A DAY TAKING HYDROCODONE-ACETAMINOPHEN 10-325 MG TABLET 1-2 TABS ORALLY EVERY 4-6 HRS PRN PAIN MDD=8 TAKING OXYCODONE HCL 10 MG TABLET 1 TABLET NEEDED ORALLY EVERY 4 HRS PRN PAIN MDD=6 CHRONIC PAIN NOT-TAKING ARMODAFINIL 150 MG TABLET 1 TABLET IN THE MORNING ORALLY ONCE A DAY MDD=1 NOT-TAKING NUVIGIL 50 MG TABLET 1 TABLETS ORALLY BID MEDICATION LIST REVIEWED AND RECONCILED WITH THE PATIENT PAST MEDICAL HISTORY TRIGEMINAL NEURALGIA GERD BLEEDING ULCERS BACK AND NECK PAIN ALLERGIES OXYCONTIN: URINARY RETENTION: SIDE EFFECTS NSAIDS: GI BLEED/ULCERS: CONTRAINDICATION REVIEW OF SYSTEMS REVIEWED BY: PROVIDER: CHARANJIT VOGEL DIALYSIS REGISTERED NURSE . CONSTITUTIONAL: ANY CHANGE IN YOUR MEDICAL CONDITION? YES, NECK CRUNCHES (NOISES) WHEN HE MOVES PAIN IS 100% WORSE THAN HAS EVER HAD . CHILLS NO . FEVER NO . INFECTION: DO YOU HAVE NEW INFECTIONS? NO . DO YOU HAVE HISTORY OF MRSA? NO . MUSCULOSKELETAL: ANY NEW PATTERNS OF PAIN OR NUMBNESS? YES. LEFT NECK INTO HIS HEAD AND AFFECTING VISION IN LEFT EYE . GASTROENTEROLOGY: ANY NEW CHANGE IN BOWEL CONTROL? NO . GENITOURINARY: ANY NEW CHANGE IN BLADDER CONTROL? NO . IS THERE A CHANCE YOU COULD BE ? NO . HEMATOLOGY/LYMPH: DO YOU TAKE ANY BLOOD THINNERS? (FOR EXAMPLE- COUMADIN, PLAVIX, AGGRENOX, PLATEL, PRADAXA, OR XARELTO) NO . WHEN WAS YOUR LAST DOSE? DATE: TIME: . NEUROLOGY: HAVE YOU FALLEN IN THE PAST 6 MONTHS? NO . ANY NEW EXTREMITY NUMBNESS OR WEAKNESS? NO . CARDIOLOGY: DO YOU HAVE A PACEMAKER OR DEFIBRILLATOR? NO . RESPIRATORY: HAVE YOU BEEN SICK IN THE PAST WEEK? NO . FEVER NO . FLU LIKE SYMPTOMS? NO . COUGH NO . INTEGUMENTARY: DO YOU HAVE ANY RASHES OR OPEN SORES? NO . ALLERGIC/IMMUNO: ARE YOU ALLERGIC TO SHELLFISH OR IV DYE? NO . ANY NEW ALLERGIES? NO . PSYCHIATRIC: DO YOU HAVE THOUGHTS OF HURTING YOURSELF OR SOMEONE ELSE? NO . ARE YOU ABUSED, NEGLECTED, OR IN AN UNSAFE ENVIRONMENT? NO . ENDOCRINOLOGY: ARE YOU DIABETIC? NO . OTHER: DO YOU NEED ANY PRESCRIPTIONS? NO . IF YES, PLEASE LIST: ____ . ANY NEW PROBLEMS WITH YOUR MEDICATIONS? NO . WHEN DID YOU LAST EAT? ____ . WHEN DID YOU LAST DRINK? ____ . WHAT DID YOU LAST DRINK? ____ . NAME OF PERSON DRIVING YOU HOME? ____ . DO YOU HAVE ANY OTHER QUESTIONS OR CONCERNS DID NOT HAVE SURGERY - MD POSTPONED DUE TO TOO MUCH SWELLING/ SEES MD TOMORROW . VITAL SIGNS WT 181 LBS, HT 69 IN, BMI 26.73 INDEX, BP 137/96 MM HG, HR 74 /MIN, RR 16 /MIN, TEMP 97.9 F, OXYGEN SAT % 96%, NA INITIALS SC 13:57, REVIEWED BY: NL. EXAMINATION GENERAL EXAMINATION: PSYCHALERT , ORIENTED X 3 , APPROPRIATE MOOD AND AFFECT . LUNGS:CLEAR TO AUSCULTATION BILATERALLY, NO WHEEZES, RALES OR RHONCHI. HEART:HEART RATE REGULAR. MUSCULOSKELETAL:MUSCLE STRENGTH TESTING 5/5 BILATERAL UPPER AND LOWER EXTREMITIES. EXQUISITE TENDERNESS OVER LEFT OCCIPITAL NOTCH AND OCCIPUT. , TRIGGER POINTS AND TIGHT FIBROUS BANDS OVER CERVICA PARASPINOUS MUSCLES AND ACROSS TRAPEZIUS MUSCLES BILATERALLY. MARKED DECREASE IN ROM WITH NECK FLEXION, EXTENSION, ROTATION. . NEUROLOGIC EXAM:CN'S II-XII GROSSLY INTACT. EOM'S INTACT WITHOUT NYSTAGMUS. NO VISUAL FIELD DEFICIET. SPEACH CLEAR- NONDYSARTHRIC. GOOD SHOULDER SHRUG. . 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) MIGRAINE WITHOUT AURA AND WITHOUT STATUS MIGRAINOSUS, NOT INTRACTABLE - G43.009 TREATMENT OCCIPITAL NEURALGIA OF LEFT SIDE START IMITREX TABLET, 100 MG, 1 TABLET NEEDED, ORALLY, TWICE A DAY X 5 DAYS FOR SEVERE MIGRAINE, 30 DAY(S), 9, REFILLS 1 START PREDNISONE TABLET, 20 MG, 1 TABLET, ORALLY, TWICE A DAY X 3 DAYS THEN 1/2 TAB STEVAN A DAY X 3 DAYS, 30 DAY(S), 90, REFILLS 0 START TOPAMAX TABLET, 25 MG, 1 TABLET, ORALLY, TWICE A DAY, 30 DAY(S), 60, REFILLS [address] [facility] [address] BRAIN LAB [id number] [facility] CT NECK WITHOUT [id number] NOTES: DISCUSSED WITH SADE THAT HIS SYMPTOMS ARE CONSISTANT WITH MIGRAINE. RECOMMENDED THAT HE EITH GO TO THE ER FOR FURTHER EVALUATION AND CT OF BRAIN AND CERVICAL SPINE, OR HE COULD DO THE SCANS OUT PATIENT. HE WILL BE SEEING HIS ORTHOPEEDIC SURGEON TOMORROW. CLINICAL NOTES: ISTOP REGISTRY REVIEWED AND DEMNOSTRATES COMPLLIANCE. DOES NOT BRING IN MEDICATIONS TODAY. RECENT URINE TOXICOLOGY REVIEWED. NO UNAUTHORIZED MEDICATIONS. PRESENCE OF MARIJUANA IS NOTED. DISCUSSED WITH PATIENT THAT THIS IS NOT ALLOWED AND THAT HE MUST ABSTAIN FORM ANY MARIJUANA WHILE OBTAINING OPIATE MEDS.. I WILL BE RETESTING AT HIS NEXT VISIT. PRESCRIBED MEDICATIONS WERE PRESENT WITH THE EXCEPTION OF OXYCODONE BUT THIS WAS EXPECTED,. PREVENTIVE MEDICINE GAVE WRITTEN INFORMATION ON NEW MEDS ORDERED. PROCEDURE CODES FA211 ESTABILISHED PATIENT [facility] CHARGE DISPOSITION & COMMUNICATION FOLLOW UP KEEP SCHEDULED APPOINTMENT (REASON: HEAD PAIN/NECK PAIN) ELECTRONICALLY SIGNED BY PERNELL DANIELS ON 12/14/2016 AT 04:19 PM EDT DISCLAIMER : THIS IS A VISIT SUMMARY EXTRACTED FROM THE [employer] CHART. IT IS NOT A COPY OF THE [employer] PROGRESS NOTE. ESTHERD
== END | disposition home or self-care (01) ==
LOC: M PAIN 13:45
PROVIDERS: ATTEND Nurse Practitioner Family
DX: G89.29 Other chronic pain (principal); M54.81 Occipital neuralgia; G43.009 Migraine without aura, not intractable, without status migrainosus; G50.0 Trigeminal neuralgia; K21.9 Gastro-esophageal reflux disease without esophagitis; K27.4 Chronic or unspecified peptic ulcer, site unspecified, with hemorrhage; Z88.5 Allergy status to narcotic agent; Z88.8 Allergy status to other drugs, medicaments and biological substances; Z79.899 Other long term (current) drug therapy

== ENCOUNTER → 2017-02-03 | Outpatient (CLI) | payer OTHER, MEDICAID ==
--- NOTE | 2017-03-07 00:49 | ECWPNPC ---
PATIENT NAME: SADE BUENROSTRO : 1965 GENDER: MALE VISIT DATE: 02/03/2017 DISCHARGE DATE: 02/03/17 1119 VISIT LOCKED DATE TIME: PHYSICIAN: CHARANJIT VOGEL RESOURCE: CHARANJIT VOGEL REASON FOR APPOINTMENT 1. H/A HISTORY OF PRESENT ILLNESS HISTORY OF PRESENT ILLNESS: PAIN THE PATIENT DESCRIBES THE PAIN... FALL RISK SCREENING: SCREENING :NO FALLS IN THE PAST YEAR TODAY'S VISIT: NOTES: IS HAVING LEFT HEAD PAIN WITH THE WORST OVER LEFT VERTES. HAS SHARP PAIN TO DULL NUMBING. MEDS ARE HELPFUL. RATES PAIN TODA 8/10. DESCRIBES PAIN CONSTANT AND SORE.. CURRENT MEDICATIONS TAKING OMEPRAZOLE 40 MG CAPSULE DELAYED RELEASE 1 CAPSULE ORALLY ONCE A DAY TAKING TOPAMAX 25 MG TABLET 1 TABLET ORALLY TWICE A DAY TAKING HYDROCODONE-ACETAMINOPHEN 10-325 MG TABLET 1-2 TABS ORALLY EVERY 4-6 HRS PRN PAIN MDD=8 TAKING OXYCODONE HCL 10 MG TABLET 1 TABLET NEEDED ORALLY EVERY 4 HRS PRN PAIN MDD=6 CHRONIC PAIN TAKING WELLBUTRIN XL 150 MG TABLET EXTENDED RELEASE 24 HOUR 1 TABLET IN THE MORNING ORALLY ONCE A DAY NOT-TAKING IMITREX 100 MG TABLET 1 TABLET NEEDED ORALLY TWICE A DAY X 5 DAYS FOR SEVERE MIGRAINE NOT-TAKING PREDNISONE 20 MG TABLET 1 TABLET ORALLY TWICE A DAY X 3 DAYS THEN 1/2 TAB STEVAN A DAY X 3 DAYS NOT-TAKING ARMODAFINIL 150 MG TABLET 1 TABLET IN THE MORNING ORALLY ONCE A DAY MDD=1 NOT-TAKING NUVIGIL 50 MG TABLET 1 TABLETS ORALLY BID MEDICATION LIST REVIEWED AND RECONCILED WITH THE PATIENT PAST MEDICAL HISTORY TRIGEMINAL NEURALGIA GERD BLEEDING ULCERS BACK AND NECK PAIN ALLERGIES OXYCONTIN: URINARY RETENTION: SIDE EFFECTS NSAIDS: GI BLEED/ULCERS: CONTRAINDICATION SOCIAL HISTORY GENERAL: TOBACCO USE ARE YOU A:NONSMOKER ALCOHOL SCREENING POINTS2 INTERPRETATIONNEGATIVE RECREATIONAL DRUG USE DRUG USE?NO SYNAGOGUE [id number] NONE LANGUAGE LANGUAGES SPOKEN:TURKS AND [place] ISLANDER LEARNING BARRIERS / SPECIAL NEEDS BARRIERS TO LEARNING?NO HEARING IMPAIRED?NO VISION IMPAIRED?YES GLASSES FOR READING COGNITIVELY IMPAIRED?NO READINESS TO LEARN?YES LEARNING PREFERENCES?NO LEARNING CAPABILITIES PRESENT?YES EMOTIONAL BARRIERS?NO SPECIAL DEVICES?NO NAVAL ARCHITECT NEEDED?NO PAIN CLINIC PFS, CLERGY, PUBLIC HEALTH REFERRALS PFS REFERRAL NEEDED?NO CLERGY REFERRAL NEEDED?NO PUBLIC HEALTH REFERRAL NEEDED?NO WAS THE PROVIDER NOTIFIED OF ANY PERTINENT INFO?NO HAS THE PATIENT BEEN EDUCATED REGARDING HIS/HER PLAN OF CARE?YES HAS THE PATIENT BEEN EDUCATED REGARDING PAIN, THE RISK FOR PAIN, THE IMPORTANCE OF EFFECTIVE PAIN MANAGEMENT, AND THE PAIN ASSESSMENT PROCESS?YES PATIENT: ____. ADVANCE DIRECTIVES HEALTH CARE PROXY?NO WOULD YOU LIKE MORE INFORMATION?NO DO YOU HAVE A DNR?NO WOULD YOU LIKE MORE INFORMATION?NO LIVING WILL?NO WOULD YOU LIKE MORE INFORMATION?NO POWER OF MOTOR VEHICLE COMPLIANCE ANALYST?NO WOULD YOU LIKE MORE INFORMATION?NO INSTRUCTED TO BRING IN LIVING WILL NEXT VISIT SO IT CAN BE SCANNED INTO OUR SYSTEM. REVIEW OF SYSTEMS REVIEWED BY: PROVIDER: CHARANJIT GEE . CONSTITUTIONAL: ANY CHANGE IN YOUR MEDICAL CONDITION? YES, EGD YESTERDAY AND WAS DIAGNOSED WITH HIATEL HERNIA, ALSO, 2 WEEKS AGO WAS TOLD BY A SEWER CONNECTOR Q WAVE ABNORMALITY . CHILLS NO . FEVER NO . INFECTION: DO YOU HAVE NEW INFECTIONS? NO . DO YOU HAVE HISTORY OF MRSA? NO . MUSCULOSKELETAL: ANY NEW PATTERNS OF PAIN OR NUMBNESS? NO . GASTROENTEROLOGY: ANY NEW CHANGE IN BOWEL CONTROL? NO . GENITOURINARY: ANY NEW CHANGE IN BLADDER CONTROL? NO . IS THERE A CHANCE YOU COULD BE ? NO . HEMATOLOGY/LYMPH: DO YOU TAKE ANY BLOOD THINNERS? (FOR EXAMPLE- COUMADIN, PLAVIX, AGGRENOX, PLATEL, PRADAXA, OR XARELTO) NO . WHEN WAS YOUR LAST DOSE? DATE: TIME: . NEUROLOGY: HAVE YOU FALLEN IN THE PAST 6 MONTHS? NO . ANY NEW EXTREMITY NUMBNESS OR WEAKNESS? NO . CARDIOLOGY: DO YOU HAVE A PACEMAKER OR DEFIBRILLATOR? NO . RESPIRATORY: HAVE YOU BEEN SICK IN THE PAST WEEK? NO . FEVER NO . FLU LIKE SYMPTOMS? NO . COUGH NO . INTEGUMENTARY: DO YOU HAVE ANY RASHES OR OPEN SORES? NO . ALLERGIC/IMMUNO: ARE YOU ALLERGIC TO SHELLFISH OR IV DYE? NO . ANY NEW ALLERGIES? NO . PSYCHIATRIC: DO YOU HAVE THOUGHTS OF HURTING YOURSELF OR SOMEONE ELSE? NO . ARE YOU ABUSED, NEGLECTED, OR IN AN UNSAFE ENVIRONMENT? NO . ENDOCRINOLOGY: ARE YOU DIABETIC? NO . OTHER: DO YOU NEED ANY PRESCRIPTIONS? NO . IF YES, PLEASE LIST: ____ . ANY NEW PROBLEMS WITH YOUR MEDICATIONS? NO . WHEN DID YOU LAST EAT? ____ . WHEN DID YOU LAST DRINK? ____ . WHAT DID YOU LAST DRINK? ____ . NAME OF PERSON DRIVING YOU HOME? ____ . DO YOU HAVE ANY OTHER QUESTIONS OR CONCERNS NO . VITAL SIGNS WT 204.6 LBS, HT 69 IN, BMI 30.21 INDEX, BP 143/99 MM HG, HR 91 /MIN, RR 16 /MIN, TEMP 97.6 F, OXYGEN SAT % 98%, SAFE IN ENV? (Y/N) YES, NA INITIALS TL 1026, REVIEWED BY: DOMINICK GIBBONS, RN Kody AWARE- TL. EXAMINATION GENERAL EXAMINATION: PSYCHALERT , ORIENTED X 3 , APPROPRIATE MOOD AND AFFECT . LUNGS:CLEAR TO AUSCULTATION BILATERALLY, NO WHEEZES, RALES OR RHONCHI. HEART:HEART RATE REGULAR. MUSCULOSKELETAL:MUSCLE STRENGTH TESTING 5/5 BILATERAL UPPER AND LOWER EXTREMITIES. EXQUISITE TENDERNESS OVER LEFT OCCIPITAL NOTCH AND OCCIPUT. , TRIGGER POINTS AND TIGHT FIBROUS BANDS OVER CERVICA PARASPINOUS MUSCLES AND ACROSS TRAPEZIUS MUSCLES BILATERALLY. MARKED DECREASE IN ROM WITH NECK FLEXION, EXTENSION, ROTATION. . NEUROLOGIC EXAM:CN'S II-XII GROSSLY INTACT. EOM'S INTACT WITHOUT NYSTAGMUS. NO VISUAL FIELD DEFICIET. SPEACH CLEAR- NONDYSARTHRIC. GOOD SHOULDER SHRUG. . 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 CLINICAL NOTES: [employer] REGISTRY REVIEWED AND DEMNOSTRATES COMPLLIANCE. (REF # [id number]) BRINGS IN MEDICATIONS WHICH IS APPROPRIATE FOR WHAT WAS DISPENSED. RECENT URINE TOXICOLOGY REVIEWED. NO UNAUTHORIZED MEDICATIONS. NO ILLICIT SUBSTANCES AND PRESCRIBED MEDICATIONS WERE PRESENT. , RISKS AND BENEFITS OF NARCOTIC/OPIOD MEDICATIONS WERE REVIEWED WITH PATIENT - THIS INCLUDES BUT IS NOT LIMITED TO RISK OF DEPENDANCE/DEVELOPMENT OF ADDICTION, MOOD DISTURBANCE AND DEPRESSION, OSTEOPOROSIS, HORMONAL AND LABIDAL CHANGES, RESPIRATORY DEPRESSION AND . PATIENT IS ADVISED NOT TO DRIVE WHILE ON THESE MEDICATIONS. REFERRAL TO:COMPREHENSIVE PAIN MED [facility] REASON:CRYOTHERAPY TO LEFT OCCIPITAL NERVE FOR PERSISTANT OCCIPITAL NEURALGIA PROCEDURE CODES FA211 ESTABILISHED PATIENT JAIN FACILITY CHARGE DISPOSITION & COMMUNICATION FOLLOW UP 4-6 WEEKS (REASON: HEAD ANDREI/OCCIPITAL NEURALGIA) ELECTRONICALLY SIGNED BY PERNELL DANIELS ON 03/06/2017 AT 11:57 AM EST DISCLAIMER : THIS IS A VISIT SUMMARY EXTRACTED FROM THE [employer] CHART. IT IS NOT A COPY OF THE [employer] PROGRESS NOTE. JD
== END ==
LOC: M PAIN 10:00
PROVIDERS: ATTEND Nurse Practitioner Family
DX: M54.81 Occipital neuralgia (principal); G43.101 Migraine with aura, not intractable, with status migrainosus; K44.9 Diaphragmatic hernia without obstruction or gangrene; R94.31 Abnormal electrocardiogram [ECG] [EKG]; Z79.899 Other long term (current) drug therapy; Z79.891 Long term (current) use of opiate analgesic; Z88.8 Allergy status to other drugs, medicaments and biological substances; Z88.5 Allergy status to narcotic agent

== ENCOUNTER → 2017-06-21 | Outpatient (CLI) | payer OTHER, MEDICAID | LOC: M PAIN 10:45 | DX: M54.81 Occipital neuralgia (principal); G43.101 Migraine with aura, not intractable, with status migrainosus; K21.9 Gastro-esophageal reflux disease without esophagitis; Z79.891 Long term (current) use of opiate analgesic; Z79.899 Other long term (current) drug therapy; Z88.8 Allergy status to other drugs, medicaments and biological substances | CPT/HCPCS: G0463 ==

== ENCOUNTER → 2017-07-22 | Outpatient (CLI) | payer BC | LOC: M PAIN 11:15 | DX: M54.81 Occipital neuralgia (principal); G43.101 Migraine with aura, not intractable, with status migrainosus; K21.9 Gastro-esophageal reflux disease without esophagitis; Z79.891 Long term (current) use of opiate analgesic; Z79.899 Other long term (current) drug therapy; Z88.8 Allergy status to other drugs, medicaments and biological substances | CPT/HCPCS: G0463 ==

== ENCOUNTER → 2017-08-18 | Outpatient (CLI) | payer BC | LOC: M PAIN 10:30 | DX: M54.81 Occipital neuralgia (principal); G43.101 Migraine with aura, not intractable, with status migrainosus; K21.9 Gastro-esophageal reflux disease without esophagitis; Z79.891 Long term (current) use of opiate analgesic; Z79.899 Other long term (current) drug therapy; Z88.5 Allergy status to narcotic agent; Z88.6 Allergy status to analgesic agent | CPT/HCPCS: G0463 ==